=== PATIENT | female | born 1945 | race Two or more races ===

== ENCOUNTER 2018-02-23 06:32 | Day surgery (SDC) | payer OTHER ==
[~2018-02-23 06:32] MED LIST: METFORMIN HCL500 MG; SIMVASTATIN5 MG
== END 2018-02-23 11:20 | disposition home or self-care (01) ==
LOC: AMB-ENDOS 06:32
DX: D12.0 Benign neoplasm of cecum (principal); D12.3 Benign neoplasm of transverse colon; K64.8 Other hemorrhoids; K57.30 Diverticulosis of large intestine without perforation or abscess without bleeding

== ENCOUNTER → 2018-11-25 | Outpatient (CLI) | payer OTHER ==
[~2018-11-25] MED LIST changes: +CYMBALTA60 MG PO; +FENOFIBRATE40 MG; +LISINOPRIL10 MG PO; +NEURONTIN600 MG PO; +PLAVIX75 MG PO
== END | disposition home or self-care (01) ==
LOC: NUCLEAR 10:00
DX: I20.9 Angina pectoris, unspecified (principal)

== ENCOUNTER → 2018-12-29 | Outpatient (CLI) | payer OTHER | END | disposition home or self-care (01) | LOC: NUCLEAR 10:24 | DX: M85.9 Disorder of bone density and structure, unspecified (principal); M81.0 Age-related osteoporosis without current pathological fracture ==

== ENCOUNTER → 2019-02-28 | Outpatient (CLI) | payer OTHER | END | disposition home or self-care (01) | LOC: NUCLEAR 07:00 | DX: M79.671 Pain in right foot (principal); M79.672 Pain in left foot | CPT/HCPCS: 78315; A9503 ==

== ENCOUNTER 2020-11-14 13:42 | Outpatient (CLI) | payer OTHER | END 2020-11-14 13:51 | disposition HB | LOC: RAD 13:42 | PROVIDERS: ATTEND Orthopaedic Surgery | DX: M77.32 Calcaneal spur, left foot (principal); S80.02XA Contusion of left knee, initial encounter; S90.32XA Contusion of left foot, initial encounter ==

== ENCOUNTER 2020-12-19 09:40 | Outpatient (CLI) | payer OTHER | END 2020-12-19 09:47 | disposition home or self-care (01) | LOC: LAB 09:40 | PROVIDERS: ATTEND Orthopaedic Surgery | DX: E88.89 Other specified metabolic disorders (principal); E55.9 Vitamin D deficiency, unspecified; M85.88 Other specified disorders of bone density and structure, other site; E21.2 Other hyperparathyroidism; M81.8 Other osteoporosis without current pathological fracture; E56.1 Deficiency of vitamin K ==

== ENCOUNTER 2020-12-29 10:26 | Outpatient (CLI) | payer OTHER | END 2020-12-29 10:29 | disposition home or self-care (01) | LOC: RAD 10:26 | PROVIDERS: ATTEND Orthopaedic Surgery | DX: Z96.651 Presence of right artificial knee joint (principal) ==

== ENCOUNTER 2021-01-23 07:55 | Outpatient (CLI) | payer OTHER | END 2021-01-23 07:59 | disposition home or self-care (01) | LOC: NUCLEAR 07:55 | PROVIDERS: ATTEND Orthopaedic Surgery | DX: M81.0 Age-related osteoporosis without current pathological fracture (principal) ==

== ENCOUNTER 2021-03-18 09:05 | Outpatient (CLI) | payer OTHER | END 2021-03-18 09:15 | disposition home or self-care (01) | LOC: MRI 09:05 | PROVIDERS: ATTEND Psychiatry & Neurology Clinical Neurophysiology | DX: I62.03 Nontraumatic chronic subdural hemorrhage (principal); H81.4 Vertigo of central origin | CPT/HCPCS: 70551 ==

== ENCOUNTER 2023-12-24 10:31 | Outpatient (CLI) | payer OTHER | END 2023-12-24 10:32 | disposition home or self-care (01) | LOC: NUCLEAR 10:31 | PROVIDERS: ATTEND Internal Medicine | DX: I34.0 Nonrheumatic mitral (valve) insufficiency (principal); I11.9 Hypertensive heart disease without heart failure ==

== ENCOUNTER 2023-12-24 12:23 | Outpatient (CLI) | payer OTHER | END 2023-12-24 12:27 | disposition home or self-care (01) | LOC: RAD 12:23 | PROVIDERS: ATTEND Internal Medicine Pulmonary Disease | DX: J45.30 Mild persistent asthma, uncomplicated (principal) ==

== ENCOUNTER 2024-08-03 11:00 | Outpatient (CLI) | payer OTHER | END 2024-08-03 11:05 | disposition home or self-care (01) | LOC: RAD 11:00 | PROVIDERS: ATTEND Internal Medicine Pulmonary Disease | DX: R05.3 Chronic cough (principal) ==

== ENCOUNTER → 2024-10-04 07:07 | Outpatient (CLI) | payer OTHER | END | disposition home or self-care (01) | LOC: NUCLEAR 07:00 | PROVIDERS: ATTEND Internal Medicine | DX: R06.01 Orthopnea (principal) | CPT/HCPCS: 78452; 93017; A9500 ==

== ENCOUNTER 2024-11-02 12:14 | Outpatient (CLI) | payer OTHER | END 2024-11-02 12:17 | disposition home or self-care (01) | LOC: RAD 12:14 | PROVIDERS: ATTEND Internal Medicine Pulmonary Disease | DX: J45.31 Mild persistent asthma with (acute) exacerbation (principal) ==